=== PATIENT | female | born 1945 | race Caucasian/White ===

== ENCOUNTER → 2017-03-13 | Outpatient (CLI) | payer MEDICARE, OTHER ==
[~2017-03-13] MED LIST: ASPIR-LOW81 MG PO; BENADRYL; CELEXA40 MG PO; FLEXERIL; FLONASE NASAL S16 GM NS; LISINOPRIL5 MG PO; LOVAZA1 GM; MIDRIN; MIRAPEX 0.125MG; NEPHRO-VITE1 TA1 PO; RANITIDINE HYD150 MG PO; SPIRIVA INH; SUDAFED 24 HOU240 MG PO; VITAMIN D
== END ==
LOC: MC.RAD 07:20
DX: Z12.31 Encounter for screening mammogram for malignant neoplasm of breast (principal); Z90.12 Acquired absence of left breast and nipple
CPT/HCPCS: G0202

== ENCOUNTER → 2018-03-12 | Outpatient (CLI) | payer MEDICARE, OTHER | LOC: COL.RAD 09:30 | DX: M18.0 Bilateral primary osteoarthritis of first carpometacarpal joints (principal) | CPT/HCPCS: J3301; Q9967 ==

== ENCOUNTER → 2018-03-28 | Outpatient (CLI) | payer MEDICARE, OTHER | LOC: MC.RAD 07:53 | DX: Z12.31 Encounter for screening mammogram for malignant neoplasm of breast (principal) ==

== ENCOUNTER → 2019-03-29 | Outpatient (CLI) | payer MEDICARE, OTHER | LOC: MC.RAD 07:38 | DX: Z12.31 Encounter for screening mammogram for malignant neoplasm of breast (principal); R92.0 Mammographic microcalcification found on diagnostic imaging of breast ==

== ENCOUNTER → 2019-11-25 | Outpatient (CLI) | payer MEDICARE, OTHER | LOC: COL.RAD 10:26 | DX: E21.3 Hyperparathyroidism, unspecified (principal) | CPT/HCPCS: A9500 ==

== ENCOUNTER → 2019-12-09 | Outpatient (CLI) | payer MEDICARE, OTHER | LOC: MC.RAD 07:03 | DX: R92.0 Mammographic microcalcification found on diagnostic imaging of breast (principal) | CPT/HCPCS: G0279 ==

== ENCOUNTER → 2020-03-09 | Outpatient (CLI) | payer MEDICARE, OTHER ==
[~2020-03-09] MED LIST changes: +ANORO IH; +ASPIRIN E.C. 8181 MG PO; +CLARITIN 1010 MG/TAB PO; +CYMBALTA 30MG30 MG PO; +FIBER GUMMIES2.5 GM PO; +FIBER0.52 GM PO; +LITHIUM CA150 MG/CAP PO; +MAGNESIUM250 M1 PO; +MASON NATURAL2000 IU PO; +MAXALT5 MG PO; +MIRALAX PA17 GM/Dose PO; +NORCO 325 MG-51 TAB PO; +PROAIR HFA0.09 MG/AC IH; +TRANDATE 100MG100 MG PO; +VITAMIN B COMPL1 SGL PO; +VITAMIN B12 1541 TAB PO
== END ==
LOC: COL.RAD 08:32
DX: M79.645 Pain in left finger(s) (principal); M79.644 Pain in right finger(s)
CPT/HCPCS: J3301; Q9967